=== PATIENT | female | born 1955 | race Caucasian/White ===

== ENCOUNTER → 2024-08-25 | Outpatient (REF) | payer BC ==
[~2024-08-25] MED LIST: BENADRYL25 M1 PO; MULTI-VITAMIN1 EACH PO; ONDANSETRON ODT8 MG PO; PANTOPRAZOLE SO40 MG PO; PROBIOTIC & AC1 EACH PO; TURMERIC CURCU500 MG PO; TYLENOL325 MG PO
== END ==
LOC: US 07:25
PROVIDERS: ATTEND Nurse Practitioner
DX: R10.10 Upper abdominal pain, unspecified (principal)
CPT/HCPCS: 76700

== ENCOUNTER 2024-09-21 10:26 | Emergency (ER) | payer BC ==
[~2024-09-21] VITALS: Ht 165.1 cm; Wt 77.1 kg
[2024-09-21] MEDS: KETOROLAC TROMETHAMINE 30 MG/ML VIAL IV STA (11:22)
[2024-09-21] MEDS: DIAZEPAM 2 MG TAB PO ONE (11:22)
[2024-09-21] MEDS: SODIUM CHLORIDE 0.9% 1000ML 1,000 ML IV STA (11:22)
[2024-09-21 11:38] LABS: BASOPHILS % 0.4 % (0.0-1.0); EOSINOPHILS % 0.5 % (0.0-6.0); HEMATOCRIT 37.4 % (34.2-44.1); HEMOGLOBIN 12.1 g/dL (12.0-16.0); LYMPHOCYTES # (AUTO) 1.9 (1.0-3.2); MEAN CORPUSCULAR HEMOGLOBIN 31.5 pg (28-32); MEAN CORPUSCULAR HGB CONC 32.4 g/dL (31-35); MEAN CORPUSCULAR VOLUME 97.4 fL (81-99); MONOCYTES # (AUTO) 0.5 (0.2-0.8); MONOCYTES % 6.7 % (4.4-11.3); NEUTROPHILS # (AUTO) 5.1 (2.1-6.9); NEUTROPHILS % 66.6 % (38.7-80.0); PLATELET COUNT 336 x10e3/uL (140-360); RED BLOOD COUNT 3.84 x10e6/uL (3.6-5.1); RED CELL DISTRIBUTION WIDTH 12.2 % (11.7-14.4); WHITE BLOOD COUNT 7.61 x10e3/uL (4.8-10.8)
[2024-09-21 11:58] LABS: INR 0.93
[2024-09-21 12:03] LABS: ALBUMIN 4.2 g/dL (3.5-5.0); BILIRUBIN,TOTAL 0.4 mg/dL (0.2-1.2); CALCIUM 9.8 mg/dL (8.4-10.2); CREATININE, SERUM 0.76 mg/dL (0.57-1.11); TOTAL PROTEIN 7.4 g/dL (6.5-8.1)
[2024-09-21 12:04] LABS: ALBUMIN/GLOBULIN RATIO 1.3 (0.8-2.0)
[2024-09-21] MEDS ORDERED: IOPAMIDOL 370 MG/ML 100 ML INFUS..BTL INJ ONE (12:18)
[2024-09-21 14:35] VITALS: PULSE 67; RESP 18; TEMP 98.2; O2SAT 99
== END 2024-09-21 15:00 | disposition home or self-care (01) ==
LOC: ER 11:07
DX: R10.31 Right lower quadrant pain (principal); S39.011A Strain of muscle, fascia and tendon of abdomen, initial encounter; K21.9 Gastro-esophageal reflux disease without esophagitis; Z87.19 Personal history of other diseases of the digestive system
CPT/HCPCS: 36415; 74177; 80053; 85025; 85610; 85730; 99283; J1885; J7030; Q9967